=== PATIENT | female | born 1935 | race Caucasian/White ===

== ENCOUNTER 2018-07-03 06:39 | Emergency (ER) | payer MEDICARE, BC ==
[~2018-07-03] VITALS: Ht 162.6 cm; Wt 93.2 kg
[2018-07-03] MEDS ORDERED: RANITIDINE150 MG PO (07:08)
[2018-07-03] MEDS ORDERED: LIPITOR20 MG PO (07:10)
[2018-07-03] MEDS ORDERED: HYDROCHLOROT25 MG PO (07:10)
[2018-07-03] MEDS ORDERED: LEVOTHYROXIN50 MCG PO (07:10)
[2018-07-03] MEDS ORDERED: VITAMIN D H1000 UNIT PO (07:11)
[2018-07-03] MEDS ORDERED: METOPROL TAR25 MG PO (07:11)
[2018-07-03] MEDS ORDERED: OMEGA-3 FISH1000 MG PO (07:12)
[2018-07-03] MEDS ORDERED: LISINOPRIL2.5 MG PO (07:12)
[2018-07-03] MEDS ORDERED: VITAMIN B 12100 MCG PO (07:12)
[2018-07-03] MEDS ORDERED: WARFARIN1 MG PO (07:13)
[2018-07-03 13:30] LABS: URINE BILIRUBIN - DIPSTICK NEGATIVE (NEGATIVE); URINE BLOOD DIPSTICK SMALL (NEGATIVE); URINE COLOR YELLOW; URINE GLUCOSE - DIPSTICK NEGATIVE (NEGATIVE); URINE KETONE NEGATIVE (NEGATIVE); URINE LEUK ESTERASE NEGATIVE (NEGATIVE); URINE NITRITE - DIPSTICK NEGATIVE (Negative); URINE PH 5.5 (4.5-8.0); URINE PROTEIN - DIPSTICK NEGATIVE (NEG-TRACE); URINE SPECIFIC GRAVITY >=1.030; URINE UROBILINOGEN - DIPSTICK 0.2 E.U./dL (0.2)
[2018-07-03 13:47] LABS: URINE CLARITY CLEAR
[2018-07-03 13:54] LABS: URINE SQUAMOUS EPITHELIAL CELL FEW EPI/hpf (0-FEW); URINE WBC 0-2 WBC/hpf (0-5)
[2018-07-03] MEDS ORDERED: NAPROSYN500 MG PO (14:12)
[2018-07-03] MEDS ORDERED: PERCOCET 5/325M1 TAB PO (14:12)
[2018-07-03 14:14] VITALS: BP 100/45
[2018-07-03] MEDS ORDERED: ZOFRAN ODT4 MG PO (14:22)
== END 2018-07-03 14:57 | disposition home or self-care (01) ==
LOC: ED 06:39
PROVIDERS: Emergency Medicine
DX: M54.5 Low back pain (principal); G89.29 Other chronic pain; I10 Essential (primary) hypertension; K21.9 Gastro-esophageal reflux disease without esophagitis; I48.91 Unspecified atrial fibrillation; E78.00 Pure hypercholesterolemia, unspecified

== ENCOUNTER → 2019-01-13 | Outpatient (REF) | payer MEDICARE, BC ==
[~2019-01-13] MED LIST: HYDROCHLOROT25 MG PO; LEVOTHYROXIN50 MCG PO; LIPITOR20 MG PO; LISINOPRIL2.5 MG PO; METOPROL TAR25 MG PO; NAPROSYN500 MG PO; OMEGA-3 FISH1000 MG PO; PERCOCET 5/325M1 TAB PO; RANITIDINE150 MG PO; VITAMIN B 12100 MCG PO; VITAMIN D H1000 UNIT PO; WARFARIN1 MG PO; ZOFRAN ODT4 MG PO
[2019-01-13 10:08] LABS: INTERNATIONAL NORMALIZED RATIO 2.4 RATIO (0.7-1.3); PROTHROMBIN TIME 24.7 SECONDS (9.0-12.5)
== END | disposition home or self-care (01) ==
LOC: LAB 08:48
PROVIDERS: ATTEND Internal Medicine Cardiovascular Disease
DX: I48.0 Paroxysmal atrial fibrillation (principal)

== ENCOUNTER 2019-07-21 12:18 | Emergency (ER) | payer MEDICARE, BC ==
[~2019-07-21] VITALS: Ht 162.6 cm; Wt 2.0 kg
[2019-07-21] MEDS ORDERED: CLINDAMYCIN300 M1 PO (13:07)
[2019-07-21] MEDS ORDERED: DIFLUCAN150 MG PO (13:45)
[2019-07-21] MEDS ORDERED: ATORVASTATIN CA40 MG PO (13:46)
[2019-07-21] MEDS ORDERED: COUMADIN5 MG PO (13:47)
[2019-07-21] MEDS ORDERED: RANITIDINE HCL300 MG PO (13:47)
[2019-07-21] MEDS ORDERED: LOPRESSOR25 M1 PO (13:48)
== END 2019-07-21 13:54 | disposition home or self-care (01) ==
LOC: ED 12:18
PROC: 0H9AXZZ Drainage of Inguinal Skin, External Approach (ICD-10-PCS; principal; 2019-07-21)
DX: L02.214 Cutaneous abscess of groin (principal); I10 Essential (primary) hypertension; I48.91 Unspecified atrial fibrillation; Z79.01 Long term (current) use of anticoagulants; Z88.1 Allergy status to other antibiotic agents

== ENCOUNTER 2019-07-23 10:11 | Emergency (ER) | payer MEDICARE, BC ==
[~2019-07-23] VITALS: Ht 162.6 cm; Wt 88.2 kg
[~2019-07-23 10:11] MED LIST changes: +ATORVASTATIN CA40 MG PO; +CLINDAMYCIN300 M1 PO; +COUMADIN5 MG PO; +DIFLUCAN150 MG PO; +LOPRESSOR25 M1 PO; +RANITIDINE HCL300 MG PO
[2019-07-23] MEDS ORDERED: MUPIROCIN2 % EX (10:39)
[2019-07-23 10:50] VITALS: BP 125/67
== END 2019-07-23 10:50 | disposition home or self-care (01) ==
LOC: ED 10:11
DX: Z48.01 Encounter for change or removal of surgical wound dressing (principal)

== ENCOUNTER 2020-09-16 09:01 | Emergency (ER) | payer MEDICARE, BC ==
[~2020-09-16] VITALS: Ht 162.6 cm; Wt 88.2 kg
[~2020-09-16 09:01] MED LIST changes: +MUPIROCIN2 % EX
[2020-09-16 10:30] LABS: HEMATOCRIT 37.6 % (37.0-47.0); HEMOGLOBIN 11.9 g/dl (12.0-16.0); IMMATURE GRANULOCYTES 0.3 % (0.0-5.0); MEAN CELL VOLUME 95.9 fL CALC (80.0-100.0); MEAN CORPUSCULAR HGB 30.4 pG CALC (26.0-32.0); MEAN CORPUSCULAR HGB CONC 31.6 g/dL CAL (32.0-36.0); NEUT# 5.24 thou/uL (2.00-7.15); RED BLOOD COUNT 3.92 mill/uL (4.20-5.60)
[2020-09-16 10:49] LABS: ALBUMIN 4.1 g/dL (3.2-5.0); ALKALINE PHOSPHATASE 107 u/l (38-126); ANION GAP 10 (6-22 (CALC)); BILIRUBIN, TOTAL 0.6 mg/dL (0.0-1.4); BUN 16 mg/dL (8-23); BUN/CREATININE RATIO 18 (12-20 (CALC)); CARBON DIOXIDE 29 mmol/l (22-30); CHLORIDE 109 mmol/l (95-108); CREATININE 0.9 mg/dL (0.5-1.0); GFR 60 ML/MIN (>=60 (CALC)); GFR FOR AFR.AMER. > 60 ML/MIN (>=60 (CALC)); POTASSIUM 4.3 mmol/l (3.5-5.1); SGOT/AST 34 u/l (9-36); SODIUM 143 mmol/l (137-146); TOTAL PROTEIN 7.4 g/dL (6.3-8.2)
[2020-09-16] MEDS ORDERED: LORTAB 1010 MG PO (11:15)
[2020-09-16] MEDS ORDERED: NAPROXEN500 MG PO (11:15)
[2020-09-16 11:24] VITALS: BP 149/68
== END 2020-09-16 11:25 | disposition home or self-care (01) ==
LOC: ED 09:01
PROVIDERS: Emergency Medicine
DX: M19.072 Primary osteoarthritis, left ankle and foot (principal); I10 Essential (primary) hypertension; I48.91 Unspecified atrial fibrillation; Z95.0 Presence of cardiac pacemaker

== ENCOUNTER 2020-11-04 10:56 | Emergency (ER) | payer MEDICARE, BC ==
[~2020-11-04] VITALS: Ht 162.6 cm; Wt 90.0 kg
[~2020-11-04 10:56] MED LIST changes: +LORTAB 1010 MG PO; +NAPROXEN500 MG PO
[2020-11-04 11:57] LABS: HEMATOCRIT 40.7 % (37.0-47.0); HEMOGLOBIN 13.1 g/dl (12.0-16.0); IMMATURE GRANULOCYTES 0.4 % (0.0-5.0); MEAN CELL VOLUME 93.1 fL CALC (80.0-100.0); MEAN CORPUSCULAR HGB CONC 32.2 g/dL CAL (32.0-36.0); NEUT# 3.37 thou/uL (2.00-7.15); RED BLOOD COUNT 4.37 mill/uL (4.20-5.60); RED CELL DISTRI WIDTH 12.8 % (11.5-15.5)
[2020-11-04 12:27] LABS: ALBUMIN 4.4 g/dL (3.2-5.0); BILIRUBIN, TOTAL 0.7 mg/dL (0.0-1.4); CREATININE 1.4 mg/dL (0.5-1.0); POTASSIUM 4.1 mmol/l (3.5-5.1); TOTAL PROTEIN 7.9 g/dL (6.3-8.2)
[2020-11-04] MEDS ORDERED: OMEGA 3 500 5001 CAP PO (12:29)
[2020-11-04] MEDS ORDERED: PROBIOTIC1 TAB PO (12:29)
[2020-11-04] MEDS ORDERED: ZINC50 M1 PO (12:30)
[2020-11-04 13:48] LABS: URINE BLOOD DIPSTICK SMALL (NEGATIVE); URINE COLOR YELLOW; URINE GLUCOSE - DIPSTICK NEGATIVE (NEGATIVE); URINE KETONE TRACE mg/dL (NEGATIVE); URINE NITRITE - DIPSTICK NEGATIVE (Negative); URINE PROTEIN - DIPSTICK 30 mg/dL (NEG-TRACE); URINE SPECIFIC GRAVITY >=1.030; URINE UROBILINOGEN - DIPSTICK 0.2 E.U./dL (0.2)
[2020-11-04 13:49] LABS: URINE BILIRUBIN - DIPSTICK SMALL (NEGATIVE); URINE LEUK ESTERASE SMALL (NEGATIVE)
[2020-11-04 13:50] LABS: URINE BACTERIA FEW hpf; URINE EPITHELIAL CELLS MANY EPI/hpf (0-FEW)
[2020-11-04] MEDS ORDERED: CIPROFLOXACN500 MG PO (15:04)
[2020-11-04] MEDS ORDERED: ROBITUSSIN AC10 ML PO (15:04)
[2020-11-04 16:50] VITALS: BP 103/64
== END 2020-11-04 16:50 | disposition home or self-care (01) ==
LOC: ED 10:56
PROVIDERS: Emergency Medicine
DX: U07.1 COVID-19 (principal); R68.83 Chills (without fever); R53.1 Weakness; N39.0 Urinary tract infection, site not specified; I10 Essential (primary) hypertension; K21.9 Gastro-esophageal reflux disease without esophagitis; I48.91 Unspecified atrial fibrillation

== ENCOUNTER 2020-11-08 10:43 | Observation (INO) | payer MEDICARE, BC ==
[~2020-11-08] VITALS: Ht 162.6 cm; Wt 87.3 kg
[~2020-11-08 10:43] MED LIST changes: +CIPROFLOXACN500 MG PO; +OMEGA 3 500 5001 CAP PO; +PROBIOTIC1 TAB PO; +ROBITUSSIN AC10 ML PO; +ZINC50 M1 PO
--- NOTE | 2020-11-08 10:43 | NUR ---
PT TO ROOM # 13 VIA EMS STRETCHER.
--- NOTE | 2020-11-08 11:00 | NUR ---
PT RESTING ON STRETCHER WITH INT AUTOMOTIVE SERVICE MANAGEMENT TEACHER COUGH. REPORTS NO IMPROVEMENT FROM SYMPTOMS SINCE LAST ED VISIT ON 11/04/20. CONTINUED NON PROD COUGH WITH GENERALIZED WEAKNESS. DISCUSSED PLAN OF CARE WITH PT. VERBALIZZED UNDERSTANDING. NURSERYMAN ASSISTANT IN PLACE. DENIES ANY NEEDS. CALL LIGHT WITHIN REACH,.
--- NOTE | 2020-11-08 11:15 | NUR ---
ABG DRAWN PER ORDER.
--- NOTE | 2020-11-08 11:23 | NUR ---
CONTRACTOR BUYER BEDSIDE FOR BLOOD DRAW.
[2020-11-08 11:29] LABS: HEMATOCRIT 38.1 % (37.0-47.0); HEMOGLOBIN 12.4 g/dl (12.0-16.0); IMMATURE GRANULOCYTES 0.8 % (0.0-5.0); MEAN CELL VOLUME 91.6 fL CALC (80.0-100.0); MEAN CORPUSCULAR HGB 29.8 pG CALC (26.0-32.0); MEAN CORPUSCULAR HGB CONC 32.5 g/dL CAL (32.0-36.0); RED BLOOD COUNT 4.16 mill/uL (4.20-5.60); RED CELL DISTRI WIDTH 12.8 % (11.5-15.5)
[2020-11-08 11:54] LABS: ALBUMIN 3.9 g/dL (3.2-5.0); CREATININE 1.3 mg/dL (0.5-1.0); TOTAL PROTEIN 7.2 g/dL (6.3-8.2)
[2020-11-08 12:00] LABS: BILIRUBIN, TOTAL 1.2 mg/dL (0.0-1.4)
--- NOTE | 2020-11-08 12:30 | NUR ---
PT RESTING ON STRETCHER IN NAD WITH OXYGEN IN PLACE @ 2L VIA NC. ADVISED OF CONT WAIT TIME FOR RESULTS. VERALIZED UNDERSTANDIGN. DENIES ANY QUESTIONS OR NEEDS AT THIS TIME. POULTRY HATCHERY LABORER IN PLACE. CALL LIGHT WITHIN REACH.
--- NOTE | 2020-11-08 14:25 | NUR ---
PT REQUSTING TO USE BR. TIFFANIECK PLACED ON PT, DISCUSSED USE OF WICK AND IMPORTANCE TO NOTIFY NURSE FOR ANY CHANGES, VEBRALIZED UNDERSTANDING. DENIES ANY NEEDS. CALL LIGHT WITHIN REACH.
--- NOTE | 2020-11-08 15:40 | NUR ---
PT RESTING ON STRETCHER IN NAD. RESP EVEN AND UNLABORED. SKIN WARM AND DRY. IV ABX INFUSING WITHOUT DIFFICULTY. ADVISED OF CONT WAIT TIME FOR RESULTS. VERBALIZED UNDERSTANDING. DNEIES ANY NEEDS. BUILDING ENGINEER IN PLACE. CALL LIGHT WITHIN REACH.
[2020-11-08 15:55] LABS: PROTHROMBIN TIME 46.2 SECONDS (9.0-12.5)
--- NOTE | 2020-11-08 16:40 | NUR ---
Admission Note Report Given to: NALINI LEWIS Transported by: Wheelchair X Stretcher Transported with: X Nurse Transporter X Patent IV X O2 X Airbrush Artist Photography Location: ICU X MS2 PT REPORT GIVEN TO NALINI LEWIS AND TRANSPORTED TO ID WITH TELE IN PLACE. BELONGINGS SENT WITH PT (CLOTHING, PULSE OX, CELL PHONE AND WHITE INSPECTOR AUTOMATIC TYPEWRITER)
--- NOTE | 2020-11-08 16:50 | NUR ---
PATIENT RECEIVED FROM ER AT THIS TIME. VERBAL REPORT GIVEN BY PEDRO GAYLE. PATIENT TRANSFERED TO BED AND DENIES ANY PAIN AT THIS TIME. PATIENT ALERT AND ORIENTED X3. PATIENT ON O2 AT THIS TIME AT 2 LITERS. PATIENT RESPIRATIONS ARE EVEN AND UNLABORED AT THIS TIME AND ALL LUNG VELAZQUEZ ARE CLEAR. PATIENT DOES EXHIBIT A DRY NON PRODUCTIVE COUGH AT THIS TIME. PATIENT DOES HAVE A PURWICK IN PLACE DUE TO STRESS INCONTINENCE. PATIENTS SKIN IS INTACT AT THIS TIME.PATIENT HAS REQUESTED TO KEEP ALL VALUABLE WITH HER AND DOEW HAVE $114.00 IN [place] IN HER PURSE. PATIENT ADVISE FOR SAFETY TO HAVE FAMILY COME AND RD SCIENTIST [place] OR PLACE IN HOSPITAL SAFE AND PATIENT STATED " I PREFFER TO KEEP IT WITH ME AT THIS TIME". PATIENT ORIENTED TO ROOM AND SURROUNDING AND TO BED OPERATIONS AND TV AND CALL LIGHT AT THIS TIME. SIDERAILS ARE UP X 2 AND 02 ON AT [address] AND READING PACED AT 56 AT THIS TIME.
[2020-11-08 17:18] VITALS: BP 114/82
[2020-11-08 19:00] VITALS: BP 118/78
--- NOTE | 2020-11-08 20:14 | NUR ---
PT MEDICATED ORDERS PROVIDE AND ASSESSMENT COMPLETED AT THIS TIME. PT CLEANED OF INCONTINENT URINE AND STOOL. PUREWICK REPLACED. PT HAS SORES X2 IN R.VULVA AREA, SHE C/O TENDERNESS TO SITE, REPORTED KNOWING THEY ARE THERE. NO OTHER SKIN ISSUES OBSERVED.
[2020-11-09] VITALS: BP 115/54
--- NOTE | 2020-11-09 00:02 | NUR ---
GAME SHOW HOST IN WITH PT CLEANING OF INCONTINENT RUNNY STOOL AND OBTAINING V/S. NO S/O DISTRESS NOTED.
[2020-11-09 03:19] LABS: URINE BILIRUBIN - DIPSTICK NEGATIVE (NEGATIVE); URINE BLOOD DIPSTICK SMALL (NEGATIVE); URINE COLOR YELLOW; URINE GLUCOSE - DIPSTICK NEGATIVE (NEGATIVE); URINE KETONE TRACE mg/dL (NEGATIVE); URINE NITRITE - DIPSTICK NEGATIVE (Negative); URINE PROTEIN - DIPSTICK TRACE mg/dL (NEG-TRACE); URINE SPECIFIC GRAVITY 1.025; URINE UROBILINOGEN - DIPSTICK 0.2 E.U./dL (0.2)
[2020-11-09 03:23] LABS: URINE LEUK ESTERASE NEGATIVE (NEGATIVE)
[2020-11-09 03:26] LABS: URINE EPITHELIAL CELLS FEW EPI/hpf (0-FEW)
[2020-11-09 03:27] LABS: URINE BACTERIA MODERATE hpf
[2020-11-09 04:00] VITALS: BP 94/54
--- NOTE | 2020-11-09 04:37 | NUR ---
LAB IS IN WITH PT AT THIS TIME. PT DENIES ANY NEEDS. CALL LIGHT IS AT SIDE. NO S/O DISTRESS NOTED.
[2020-11-09 05:35] LABS: HEMATOCRIT 40.4 % (37.0-47.0); HEMOGLOBIN 13.3 g/dl (12.0-16.0); MEAN CORPUSCULAR HGB CONC 32.9 g/dL CAL (32.0-36.0); NEUT# 2.33 thou/uL (2.00-7.15); RED BLOOD COUNT 4.44 mill/uL (4.20-5.60); RED CELL DISTRI WIDTH 12.9 % (11.5-15.5)
[2020-11-09 05:47] LABS: ALBUMIN 3.3 g/dL (3.2-5.0); ALKALINE PHOSPHATASE 66 u/l (38-126); ANION GAP 13 (6-22 (CALC)); BILIRUBIN, TOTAL 0.9 mg/dL (0.0-1.4); BUN 29 mg/dL (8-23); BUN/CREATININE RATIO 27 (12-20 (CALC)); C-REACTIVE PROTEIN 4.7 mg/dL (0-0.9); CALCULATED LDLCHOLESTEROL 48 mg/dL (62-129 (CALC)); CARBON DIOXIDE 22 mmol/l (22-30); CHLORIDE 103 mmol/l (95-108); CHOLESTEROL HDL RATIO 2.7 (<4.4 (CALC)); GFR 53 ML/MIN (>=60 (CALC)); GFR FOR AFR.AMER. > 60 ML/MIN (>=60 (CALC)); HDL CHOLESTEROL 40 mg/dL (>=40); MAGNESIUM 1.8 mg/dL (1.6-2.3); POTASSIUM 4.2 mmol/l (3.5-5.1); SGOT/AST 71 u/l (9-36); SODIUM 134 mmol/l (137-146); TOTAL CHOLESTEROL 110 mg/dl (0-199); TOTAL TRIGLYCERIDES 106 mg/dl (30-149); VLDL CHOLESTROL 21 mg/dl (0-48 (CALC))
[2020-11-09 06:00] LABS: INTERNATIONAL NORMALIZED RATIO 5.5 RATIO (0.7-1.3)
[2020-11-09 07:15] VITALS: BP 114/58
--- NOTE | 2020-11-09 07:15 | NUR ---
PATIENT RESTING IN BED AT THIS TIME DENIES ANY PAIN. 02 ON AT 2 LITERS AND SPO2 IS 98% AT THIS TIME. SIDERAILS ARE UP X 2 CALL LIGHT WITHIN REACH AT THIS TIME. TELEMENTRY MONITOR IN PLACE.
--- NOTE | 2020-11-09 08:15 | NUR ---
Patient screened for physical therapy intervention and no needs are identified at this time
[2020-11-09 11:26] VITALS: BP 102/49
--- NOTE | 2020-11-09 11:47 | NUR ---
PATIENT IN BED AT THIS TIME. PATIENT DENIES ANY NEEDS AND DENIES ANY SHORTNESS OF BREATH. PATIENT IS EXHIBITING DRY NON-PRODUCTIVE COUGH AT THIS TIME. PATIENT EDUCATED ON REMDESIVIAR AND ITS USE FOR COVID. PATIENT VERBALIZES UNDERSTANDING AT THIS TIME. CALL LIGHT WITHIN REACH SIDERAILS UP X 2
[2020-11-09 14:50] VITALS: BP 110/50
--- NOTE | 2020-11-09 16:00 | NUR ---
PATIENT RESTING IN BED AT THIS TIME O2 ON AT 2 LITERS. DENIES ANY PAIN OR SHORTNESS OF BREATH. DOES STILL HAVE NON PRODUCTIVE COUGH. SIDERAILS ARE UP CALL LIGHT WITHIN REACH TELE MONITOR IN PLACE.
[2020-11-09 18:43] LABS: INTERNATIONAL NORMALIZED RATIO 7.4 RATIO (0.7-1.3); PROTHROMBIN TIME 67.5 SECONDS (9.0-12.5)
--- NOTE | 2020-11-09 18:47 | NUR ---
KEREN FARIAS CONTACTED AT THIS TIME WITH CRITICAL LABS OF PT. 67.5 AND INR IS 7.4 NO ORDERS GIVEN AT THIS TIME.
[2020-11-09 19:00] VITALS: BP 98/51
--- NOTE | 2020-11-09 21:45 | NUR ---
ASSESSMENT COMPLETED AND PT MEDICATED ORDERS PROVIDE. NO S/O DISTRESS NOTED. PT IS COUGHING DRY HACKING COUGH WHILE I AM AT BEDSIDE. LUNG SOUNDS ARE CLEAR. ASSISTED PT IN REPOSITIONING AND DISCUSSED POC/SAFETY PRECAUTIONS. PT REPORTS AMBULATING TO BSC RIGHT NEXT TO THE BED AND THEN CALLING FOR ASSISTANCE BACK TO BED. DENIES DIZZINESS, JUST REPORTS SOME MILD WEAKNESS AND FEELING COLD. 4X BLANKETS ARE ON AT THIS TIME. PT IS AFEBRILE.
--- NOTE | 2020-11-09 22:15 | NUR ---
OXYGEN SAT LEVEL ON 1L O2 SUSTAINED @96%
[2020-11-10] VITALS (7 sets, daily range): BP systolic 94–111; BP diastolic 40–77
--- NOTE | 2020-11-10 00:18 | NUR ---
OXYGEN SAT LEVEL MAINTAINED @97% ON 1LNC AT THIS TIME. NO S/O DISTRESS NOTED.
--- NOTE | 2020-11-10 05:20 | NUR ---
PT TITRATED OFF THE OXYGEN, 95% SAT LEVEL SUSTAINED. WILL CONTINUE TO MONITOR CLOSELY FOR RESPONSE. OXYGEN NC IS AT BEDSIDE FOR PRN SOB.
[2020-11-10 05:45] LABS: HEMATOCRIT 37.2 % (37.0-47.0); HEMOGLOBIN 12.3 g/dl (12.0-16.0); MEAN CELL VOLUME 89.6 fL CALC (80.0-100.0); MEAN CORPUSCULAR HGB 29.6 pG CALC (26.0-32.0); MEAN CORPUSCULAR HGB CONC 33.1 g/dL CAL (32.0-36.0); RED BLOOD COUNT 4.15 mill/uL (4.20-5.60); RED CELL DISTRI WIDTH 12.5 % (11.5-15.5)
[2020-11-10 06:08] LABS: ANION GAP 11 (6-22 (CALC)); BUN 34 mg/dL (8-23); BUN/CREATININE RATIO 39 (12-20 (CALC)); CARBON DIOXIDE 25 mmol/l (22-30); CHLORIDE 103 mmol/l (95-108); CREATININE 0.9 mg/dL (0.5-1.0); GFR 60 ML/MIN (>=60 (CALC)); GFR FOR AFR.AMER. > 60 ML/MIN (>=60 (CALC)); MAGNESIUM 1.8 mg/dL (1.6-2.3); POTASSIUM 4.5 mmol/l (3.5-5.1); SODIUM 134 mmol/l (137-146)
[2020-11-10 06:12] LABS: INTERNATIONAL NORMALIZED RATIO 4.7 RATIO (0.7-1.3)
--- NOTE | 2020-11-10 06:12 | NUR ---
LAB CALLED TO REPORT CRITICAL LAB RESULT INR 4.7, DOWN FROM 7.4 PASCUAL WELLS NOTIFIED OF CRITICAL.
--- NOTE | 2020-11-10 07:10 | NUR ---
REPORT RECEIVED FROM NALINI RUSSELL.
--- NOTE | 2020-11-10 08:30 | NUR ---
PT RESTING IN SEMI FOWLERS POSITION,A&O X3;VS OBTAINED AND ASSESSMENT COMPLETED;PT DENIES ANY CURRENT PAIN OR DISCOMFORTS,PAIN SCALE AND REPORTING EDUCATED;RESPIRATIONS EVEN AND UNLABORED ON RA, O2 SATS 95% AT THIS TIME;NON-PRODUCTIVE NOTED;ABDOMEN SOFT ON PALPATION AND ACTIVE IN ALL 4 QUARANTS;WEAK PEDAL PULSES;SKIN INTACT;TELE MONITORING IN PLACE;#24G TO LEFT HAND FLUSHED AND PATENT,SITE APPEARS HEALTHY;PT REMAINS IN AIR/CONTACT PRECAUTIONS DUE TO COVID19 DX;PT DENIES ANY ADDITIONAL NEEDS AT THIS TIME AND IS ENCOURAGED TO CALL FOR ASSISTANCE IF NEEDED;FALL PRECAUTIONS IN PLACE WITH BED IN THE LOWEST POSITION AND CALL LIGHT IN REACH;WILL CONTINUE TO MONITOR
--- NOTE | 2020-11-10 09:30 | NUR ---
AT BEDSIDE DISCUSSING POC.
--- NOTE | 2020-11-10 12:00 | NUR ---
PT RESTING IN SEMI FOWLERS POSITION;RESPIRATIONS EVEN AND UNLABORED ON RA;PT DENIES ANY CURRENT PAIN OR DISCOMFORTS;TELE MONITORING IN PLACE;IV SITE PATENT;ASSESSMENT REMAINS UNCHANGED AT THIS TIME;ENCOURAGED TO CALL FOR ASSISTANCE IF NEEDED;FALL PRECAUTIONS IN PLACE WITH BED IN THE LOWEST POSITION AND CALL LIGHT IN REACH;WILL CONTINUE TO MONOTOR
--- NOTE | 2020-11-10 15:50 | NUR ---
PT APPEARS TO BE SLEEPING IN SEMI FOWLERS POSITION;RESPIRATIONS EVEN AND UNLABORED ON RA;NO S/S OF DISTRESS NOTED;TELE MONITORING IN PLACE;IV SITE PATENT INFUSING ABX WITH EASE;ALL SAFETY PRECAUTIONS REMAIN IN PLACE WITH BED IN THE LOWEST POSITION AND CALL LIGHT IN REACH;WILL CONTINUE TO MONITOR
--- NOTE | 2020-11-10 19:30 | NUR ---
REPORT RECEIVED FROM NALINI SANCHEZ. CARE OF PATIENT ASSUMED.
[2020-11-10 22:47] LABS: INTERNATIONAL NORMALIZED RATIO 2.7 RATIO (0.7-1.3); PROTHROMBIN TIME 25.3 SECONDS (9.0-12.5)
--- NOTE | 2020-11-11 | NUR ---
PT LAYING IN BED WITH EYES CLOSED, SLEEPING COMFORTABLY. RESPIRATIONS REGULAR AND UNLABORED. NO APPARENT DISTRESS OR DISCOMFORT. CALL LIGHT WITHIN REACH. WILL CONTINUE TO MONITOR.
[2020-11-11 00:02] VITALS: BP 115/74
--- NOTE | 2020-11-11 04:00 | NUR ---
PT LAYING IN BED WITH EYES CLOSED, SLEEPING COMFORTABLY. RESPIRATIONS REGULAR AND UNLABORED. NO APPARENT DISTRESS OR DISCOMFORT. CALL LIGHT WITHIN REACH. WILL CONTINUE TO MONITOR.
[2020-11-11 04:30] VITALS: BP 97/54
[2020-11-11 05:40] LABS: HEMATOCRIT 41.4 % (37.0-47.0); HEMOGLOBIN 13.7 g/dl (12.0-16.0); MEAN CELL VOLUME 89.8 fL CALC (80.0-100.0); MEAN CORPUSCULAR HGB 29.7 pG CALC (26.0-32.0); MEAN CORPUSCULAR HGB CONC 33.1 g/dL CAL (32.0-36.0); NEUT# 5.43 thou/uL (2.00-7.15); RED BLOOD COUNT 4.61 mill/uL (4.20-5.60); RED CELL DISTRI WIDTH 12.8 % (11.5-15.5)
[2020-11-11 06:14] LABS: ALBUMIN 3.2 g/dL (3.2-5.0); ALKALINE PHOSPHATASE 71 u/l (38-126); ANION GAP 11 (6-22 (CALC)); BILIRUBIN, TOTAL 0.8 mg/dL (0.0-1.4); BUN 33 mg/dL (8-23); BUN/CREATININE RATIO 38 (12-20 (CALC)); C-REACTIVE PROTEIN 2.9 mg/dL (0-0.9); CARBON DIOXIDE 25 mmol/l (22-30); CHLORIDE 103 mmol/l (95-108); CREATININE 0.9 mg/dL (0.5-1.0); GFR 60 ML/MIN (>=60 (CALC)); GFR FOR AFR.AMER. > 60 ML/MIN (>=60 (CALC)); POTASSIUM 4.8 mmol/l (3.5-5.1); SGOT/AST 70 u/l (9-36); SODIUM 135 mmol/l (137-146); TOTAL PROTEIN 5.9 g/dL (6.3-8.2)
--- NOTE | 2020-11-11 07:10 | NUR ---
REPORT RECEIVED FROM FIORELLA COLLAZO.
[2020-11-11 08:30] VITALS: BP 115/53
--- NOTE | 2020-11-11 08:30 | NUR ---
PT RESTING IN SEMI FOWLERS POSITION,A&O X3;VS OBTAINED AND ASSESSMENT COMPLETED;PT DENIES ANY CURRENT PAIN OR DISCOMFORTS,PAIN SCALE AND REPORTING EDUCATED;RESPIRATIONS EVEN AND UNLABORED ON RA;NON-PRODUCTIVE COUGH NOTED;ABDOMEN SOFT ON PALPATION AND ACTIVE IN ALL 4 QUADRANTS;WEAK PEDAL PULSES;SKIN INTACT;#24G TO LEFT HAND FLUSHED AND PATENT,SITE APPEARS HEALTHY;OXYGEN QUALIFICATION TEST COMPLETED AT THIS TIME, PT O2 DROPPED TO 85% ON RA;PT RE-POSITIONED INTO BED AND O2 REMAINS IN THE 90'S;PT REMAINS IN AIR/CONTACT PRECAUTIONS DUE TO COVID19 DX;PT DENIES ANY ADDITIONAL NEEDS;ENCOURAGED TO CALL FOR ASSISTANCE IF NEEDED;FALL PRECAUTIONS IN PLACE WITH BED IN THE LOWEST POSITION AND CALL LIGHT IN REACH;WILL CONTINUE TO MONITOR
[2020-11-11] MEDS ORDERED: ZITHROMAX250 MG PO (10:54)
[2020-11-11] MEDS ORDERED: DEXAMETHASON6 MG PO (10:55)
[2020-11-11] MEDS ORDERED: OXY1 (10:58)
[2020-11-11 11:40] VITALS: BP 111/41
--- NOTE | 2020-11-11 11:40 | NUR ---
PT RESTING IN SEMI FOWLERS POSITION;RESPIRATIONS EVEN AND UNLABORED ON RA;PT DENIES ANY CURRENT PAIN OR DISCOMFORTS;TELE MONITORING IN PLACE;IV SITE PATENT;DISCHARGE POC DISCUSSED WITH PT AND PT VERBALIZES UNDERSTANDING;PT WILL BE D/C HOME THIS EVENING AFTER ABX ADMINISTRATION AND HOME OXYGEN ARRIVAL;PT DENIES ANY ADDITIONAL NEEDS AT THIS TIME;ENCOURAGED TO CALL FOR ASSISTANCE IF NEEDED;FALL PRECAUTIONS IN PLACE WITH CALL LIGHT IN REACH;WILL CONTINUE TO MONITOR
[2020-11-11 15:05] VITALS: BP 100/48
--- NOTE | 2020-11-11 15:33 | NUR ---
THIS NURSE INTO ROOM TO HANG ZITHROMAX IV. PT STATES THAT IV IS PAINFUL. SLIGHT REDNESS NOTED. DISCUSSED WITH COOLING TOWER TECHNICIAN POSSIBILITY OF PO. MED ORDER OBTAINED AND SENT TO PHARMACY.
--- NOTE | 2020-11-11 16:05 | NUR ---
D/C INSTRUCTIONS GIVEN TO PT. IV INTACT UPON REMOVAL.
--- NOTE | 2020-11-11 16:41 | NUR ---
Discharge instructions given. Patient verbalizes understanding of same. Discharged in stable condition via Wheelchair to Home with home oxygen at 2l accompanied by staff. All belongings sent with pt.
== END 2020-11-11 16:41 | disposition home or self-care (01) ==
LOC: ED 10:43 → ED-I 15:11 → ED 15:23 → MS2 15:24
PROVIDERS: Emergency Medicine; Nurse Practitioner; Nurse Practitioner Family; ADMIT Internal Medicine; ATTEND Internal Medicine
PROC: XW033E5 Introduction of Remdesivir Anti-infective into Peripheral Vein, Percutaneous Approach, New Technology Group 5 (ICD-10-PCS; principal; 2020-11-09)
DX: U07.1 COVID-19 (principal); J12.89 Other viral pneumonia; N28.9 Disorder of kidney and ureter, unspecified; I10 Essential (primary) hypertension; I48.91 Unspecified atrial fibrillation; E03.9 Hypothyroidism, unspecified; E78.5 Hyperlipidemia, unspecified; K21.9 Gastro-esophageal reflux disease without esophagitis; R79.1 Abnormal coagulation profile; T45.515A Adverse effect of anticoagulants, initial encounter; Z79.01 Long term (current) use of anticoagulants; Z95.0 Presence of cardiac pacemaker

== ENCOUNTER 2022-02-02 13:54 | Emergency (ER) | payer MEDICARE ==
[~2022-02-02] VITALS: Ht 162.6 cm; Wt 88.6 kg
[2022-02-02] VITALS (10 sets, daily range): BP systolic 135–162; BP diastolic 50–81
[~2022-02-02 13:54] MED LIST changes: +DEXAMETHASON6 MG PO; +OXY1; +ZITHROMAX250 MG PO
[2022-02-02] MEDS ORDERED: MEDDOSEPAK PO (17:23)
== END 2022-02-02 18:15 | disposition home or self-care (01) ==
LOC: ED 13:54
DX: S76.012A Strain of muscle, fascia and tendon of left hip, initial encounter (principal); I10 Essential (primary) hypertension; I48.91 Unspecified atrial fibrillation; E03.9 Hypothyroidism, unspecified; E78.5 Hyperlipidemia, unspecified; X50.0XXA Overexertion from strenuous movement or load, initial encounter; Y92.241 Library as the place of occurrence of the external cause